=== PATIENT | male | born 1955 | race Caucasian/White ===

== ENCOUNTER 2024-06-22 08:37 | Emergency (ER) | payer OTHER, SELFPAY ==
[2024-06-22] MEDS ORDERED: Azithromycin 500 MG VIAL ONE (08:40)
[2024-06-22] MEDS ORDERED: cefTRIAXone (ROCEPHIN) 2 GM VIAL ONE (08:40)
[2024-06-22] MEDS ORDERED: Rocuronium Bromide 10 MG/ML (10ML VIAL) ONE (08:40)
[2024-06-22] MEDS ORDERED: Ipratropium Bromide 2.5 ml Neb ONE (08:40)
[2024-06-22] MEDS ORDERED: Magnesium 2 GM/50 ML BAG (IN WATER) ONE (08:40)
[2024-06-22] MEDS ORDERED: Albuterol 2.5 MG (3 mL) NEB ONE (08:40)
[2024-06-22] MEDS ORDERED: Sodium Chloride 0.9% 1,000 ML BAG ONE (08:40)
[2024-06-22] MEDS ORDERED: methylPREDNISolone Sod Succ/PF 125 MG/2 ML VIAL ONE (08:40)
[2024-06-22] MEDS ORDERED: Furosemide 40 MG (4 mL) VIAL ONE (08:40)
[2024-06-22] MEDS ORDERED: Etomidate 40 MG (20 mL) VIAL ONE (08:40)
[2024-06-22] MEDS ORDERED: Boostrix 0.5 ML (Tdap) VIAL (>/=7 yrs of age) ONE (08:43)
[2024-06-29 12:36] LABS: ALT (SGPT) 29 U/L (8-55); AST (SGOT) 26 U/L (5-34); Albumin 3.6 g/dL (3.4-4.8); Alkaline Phosphatase 86 U/L (40-110); Anion Gap 17 mmol/L (10-20); BUN (Urea Nitrogen) 30 mg/dL (8.4-25.7); Bilirubin, Total 0.8 mg/dL (0.2-1.2); Calc. Creatinine Clearance 0 mL/min (70-130); Calcium 9.4 mg/dL (7.6-10.4); Carbon Dioxide 32 mmol/L (23-31); Chloride 97 mmol/L (98-107); Estimated GFR 62; Globulin 3.9 g/dL (2.4-3.5); Glucose 150 mg/dL (83-110); Magnesium 2.2 mg/dL (1.6-2.6); Potassium 4.9 mmol/L (3.5-5.1); Protein, Total 7.5 g/dL (5.8-8.1); Sodium 141 mmol/L (136-145)
[2024-06-29 12:37] LABS: Troponin I 0.119 ng/mL (< 0.028)
[2024-06-29 12:38] LABS: Hematocrit 55.2 % (42.0-52.0); Hemoglobin 16.4 g/dL (14.0-18.0); Mean Corpuscular HGB CONC 29.7 g/dL (32.0-36.0); Mean Corpuscular Volume 94.5 fl (78.0-98.0); RBC Distribution Width 13.7 % (11.5-14.5); Red Blood Cell (RBC) Count 5.84 mill/uL (4.70-6.10); White Blood Cell (WBC) Count 10.6 10x3/uL (4.8-10.8)
[2024-06-29 12:39] LABS: Band 5 % (5-11); Lymphocytes 16 % (21-51); MDiff Complete? YES; Mean Platelet Volume 7.7 fL (7.4-10.4); Monocytes 4 % (0-10); Neutrophil 72 % (42-75); Platelet Count 273 10x3/uL (130-400)
[2024-06-29 13:13] LABS: Anisocytosis SLIGHT = 6-15 cells (100X) (0-5/hpf)
[2024-06-29 13:14] LABS: Platelet Adequacy Comment Appears Adequate
[2024-06-29 13:15] LABS: Base Excess-Venous 2.1 mmol/L (-2.0 to 3.0); Bicarbonate (HCO3v) 35.3 mmol/L (22.0-28.0); CO2 Tension (PvCO2) 95.1 mmHg (42.0-51.0); vO2 Saturation-calc 88.2 % (60.0-85.0)
[2024-06-29 13:16] LABS: Chloride 98 mmol/L (98-107); Hemoglobin - Calc 18.8 g/dL (14.0-18.0); Potassium 4.8 mmol/L (3.5-5.1); Sodium 139 mmol/L (138-145); T. Carbon Dioxide 38.3 mmol/L (22.0-28.0)
== END 2024-06-22 10:00 | disposition short-term general hospital (02) ==
LOC: MADERS 08:37
DX: J96.02 Acute respiratory failure with hypercapnia (principal); J44.1 Chronic obstructive pulmonary disease with (acute) exacerbation; J18.9 Pneumonia, unspecified organism; I11.0 Hypertensive heart disease with heart failure; I50.9 Heart failure, unspecified; Z23 Encounter for immunization; Z87.891 Personal history of nicotine dependence
CPT/HCPCS: 31500; 51702; 71045; 80053; 82330; 82435; 82803; 83605; 83735; 83880; 84132; 84295; 84443; 84484; 85014; 85025; 87040; 90471; 90715; 96365; 96375; J0456; J0696; J1940; J2919; J3475; J7030; J7611; J7644